=== PATIENT | female | born 1980 | race Caucasian/White ===

== ENCOUNTER 2018-06-11 02:27 | Emergency (ER) | payer MEDICAID ==
[~2018-06-11] VITALS: Ht 152.4 cm; Wt 73.0 kg
[2018-06-11] MEDS ORDERED: ACETAMINOPHEN 325MG TABLET PO ONE (08:30)
[2018-06-11 10:37] VITALS: BP 103/73
== END 2018-06-11 10:39 | disposition home or self-care (01) ==
LOC: ER 02:27
DX: S00.83XA Contusion of other part of head, initial encounter (principal); Z98.890 Other specified postprocedural states; W18.39XA Other fall on same level, initial encounter; Y93.89 Activity, other specified; Y92.89 Other specified places as the place of occurrence of the external cause; Y99.8 Other external cause status
CPT/HCPCS: 70486; 81025; 99284

== ENCOUNTER 2019-05-12 00:49 | Emergency (ER) | payer OTHER, MEDICAID ==
[~2019-05-12] VITALS: Ht 152.4 cm; Wt 73.0 kg
[2019-05-12 01:26] LABS: CLARITY URINE CLOUDY (CLEAR); COLOR URINE YELLOW (YELLOW); KETONES URINE NEGATIVE (NEGATIVE); LEUKOCYTE ESTERASE URINE NEGATIVE (NEGATIVE); NITRITE URINE NEGATIVE (NEGATIVE); OCCULT BLOOD URINE 3+ (NEGATIVE); PROTEIN URINE TRACE (NEGATIVE); SPECIFIC GRAVITY URINE 1.029 (1.005-1.030)
[2019-05-12] MEDS ORDERED: IBUPROFEN 600MG TABLET PO ONE (03:00)
[2019-05-12 03:18] VITALS: BP 121/81
== END 2019-05-12 03:36 | disposition home or self-care (01) ==
LOC: ER 01:11
DX: G44.209 Tension-type headache, unspecified, not intractable (principal); F07.81 Postconcussional syndrome; M79.601 Pain in right arm; S13.8XXA Sprain of joints and ligaments of other parts of neck, initial encounter; W20.8XXA Other cause of strike by thrown, projected or falling object, initial encounter; Y93.89 Activity, other specified; Y92.89 Other specified places as the place of occurrence of the external cause; Y99.8 Other external cause status
CPT/HCPCS: 81003; 81025; 99283

== ENCOUNTER 2020-06-07 22:03 | Emergency (ER) | payer MEDICAID, OTHER ==
[~2020-06-07] VITALS: Ht 152.4 cm; Wt 76.0 kg
[2020-06-08 02:02] VITALS: BP 130/80
== END 2020-06-08 02:03 | disposition home or self-care (01) ==
LOC: ER 22:03
DX: R07.0 Pain in throat (principal); R07.89 Other chest pain; Z98.890 Other specified postprocedural states
CPT/HCPCS: 70360; 70490; 71046; 99284

== ENCOUNTER 2020-12-09 10:52 | Emergency (ER) | payer MEDICAID ==
[~2020-12-09] VITALS: Ht 152.4 cm; Wt 68.0 kg
[2020-12-09] MEDS ORDERED: ADENOSINE 3 MG/ML 2ML VIAL IV ONE ×2 (11:15)
[2020-12-09 11:29] LABS: BASOPHILS % 0.5 % (0.0-2.0); EOSINOPHILS % 0.5 % (0.0-5.0); HEMATOCRIT. 34.2 % (36.0-48.0); HEMOGLOBIN. 11.4 g/dL (12.0-16.0); LYMPHOCYTES % 31.6 % (20.0-50.0); MEAN CORPUSCULAR HEMOGLOBIN 25.3 pg (28.0-32.0); MEAN CORPUSCULAR VOLUME 75.8 fL (81.0-99.0); MONOCYTES % 6.9 % (2.0-8.0); NEUTROPHILS % 60.5 % (40.0-76.0); PLATELET 381 x1000/uL (130-400); RED BLOOD CELL COUNT 4.51 mill/uL (4.2-5.4); RED CELL DISTRIBUTION WIDTH 16.9 % (11.6-14.6)
[2020-12-09 11:35] LABS: CHLORIDE 109 mEq/L (98-107)
[2020-12-09 13:00] VITALS: BP 101/75
== END 2020-12-09 13:32 | disposition home or self-care (01) ==
LOC: ER 10:52
DX: I47.1 Supraventricular tachycardia (principal); F41.9 Anxiety disorder, unspecified; Z98.890 Other specified postprocedural states
CPT/HCPCS: 36415; 71045; 80053; 83880; 84484; 85025; 93005; 96374; 99291; J0153; 99285

== ENCOUNTER 2021-11-07 19:31 | Emergency (ER) | payer MEDICAID | END 2021-11-07 20:37 | disposition left against medical advice (07) | LOC: ER 19:31 | DX: Z53.21 Procedure and treatment not carried out due to patient leaving prior to being seen by health care provider (principal) ==

== ENCOUNTER 2023-01-08 23:59 | Emergency (ER) | payer MEDICAID, OTHER ==
[~2023-01-08] VITALS: Ht 152.4 cm; Wt 84.7 kg
[2023-01-09 00:01] VITALS: PULSE 96; RESP 18
[2023-01-09 00:07] VITALS: BP 113/58; TEMP 98.3; O2SAT 98
[2023-01-09 01:05] LABS: BASOPHILS % 0.4 % (0.0-2.0); EOSINOPHILS % 1.3 % (0.0-5.0); HEMATOCRIT. 33.1 % (36.0-48.0); HEMOGLOBIN. 11.6 g/dL (12.0-16.0); LYMPHOCYTES % 20.5 % (20.0-50.0); MEAN CORPUSCULAR HEMOGLOBIN 30.2 pg (28.0-32.0); MEAN CORPUSCULAR VOLUME 86.3 fL (81.0-99.0); MEAN PLATELET VOLUME 7.3 fl (7.4-10.4); MONOCYTES % 10.8 % (2.0-8.0); PLATELET 308 x1000/uL (130-400); RED BLOOD CELL COUNT 3.83 mill/uL (4.2-5.4); RED CELL DISTRIBUTION WIDTH 16.8 % (11.6-14.6); WHITE BLOOD COUNT 10.1 x1000/uL (4.5-11.0)
[2023-01-09 01:17] LABS: CHLORIDE 108 mEq/L (98-107); INDEX HEMOLYSI 1 (1-3); INDEX ICTERIC 1 (1-4); INDEX LIPEMIC 1 (1-3); POTASSIUM 3.7 mEq/L (3.5-5.1); SODIUM 136 mEq/L (136-145)
[2023-01-09 01:27] LABS: ALANINE AMINOTRANSFERASE 30 IU/L (13-61); ASPARTATE AMINOTRANSFERASE 17 IU/L (15-37); BILIRUBIN TOTAL 0.2 mg/dL (0.1-1.0); CARBON DIOXIDE 20 mEq/L (21-32); CREATININE 0.4 mg/dL (0.6-1.3); GLUCOSE 109 mg/dL (70-105); PROTEIN TOTAL 6.8 g/dL (6.0-8.3); TROPONIN I HIGH SENSITIVITY 4 ng/L (<54); UREA NITROGEN BLOOD 12 mg/dL (7-21)
== END 2023-01-09 02:50 | disposition home or self-care (01) ==
LOC: ER 23:59
DX: R07.89 Other chest pain (principal); R09.81 Nasal congestion; F41.9 Anxiety disorder, unspecified; Z98.890 Other specified postprocedural states
CPT/HCPCS: 36415; 80053; 84484; 85025; 93005; 99284

== ENCOUNTER 2023-03-21 21:48 | Emergency (ER) | payer MEDICAID, OTHER ==
[~2023-03-21] VITALS: Ht 152.4 cm; Wt 95.0 kg
[2023-03-21 22:48] VITALS: TEMP 97.9; O2SAT 98
[2023-03-22] MEDS ORDERED: NEOM10DR11 LEFT EAR (00:31)
[2023-03-22 00:39] VITALS: BP 139/90; PULSE 83; RESP 16
== END 2023-03-22 01:00 | disposition home or self-care (01) ==
LOC: ER 21:48
DX: H60.92 Unspecified otitis externa, left ear (principal)
CPT/HCPCS: 99282; 99283

== ENCOUNTER 2023-10-31 16:26 | Emergency (ER) | payer MEDICAID, OTHER ==
[~2023-10-31] VITALS: Ht 152.4 cm; Wt 81.6 kg
[~2023-10-31 16:26] MED LIST: NEOM10DR11 LEFT EAR
[2023-10-31 16:47] VITALS: O2SAT 98
[2023-10-31] MEDS: LIDOCAINE 5% PATCH TOP SCH (18:46)
[2023-10-31 18:48] LABS: CLARITY URINE CLOUDY (CLEAR); COLOR URINE YELLOW (YELLOW); GLUCOSE URINE NEGATIVE (NEGATIVE); KETONES URINE TRACE (NEGATIVE); LEUKOCYTE ESTERASE URINE NEGATIVE (NEGATIVE); NITRITE URINE NEGATIVE (NEGATIVE); OCCULT BLOOD URINE NEGATIVE (NEGATIVE); PH URINE 5.5 (4.5-8.0); PROTEIN URINE 1+ (NEGATIVE); SPECIFIC GRAVITY URINE 1.035 (1.005-1.030)
[2023-10-31] MEDS ORDERED: CYCL10TA21 MT (18:53)
[2023-10-31] MEDS ORDERED: NAPR220C61 MT (18:53)
[2023-10-31] MEDS ORDERED: LIDO700A15 TP (18:53)
[2023-10-31 18:59] LABS: BACTERIA URINE 1+; SQUAMOUS EPITHELIAL CELL URINE 2+ /lpf (RARE/1+)
[2023-10-31 19:00] VITALS: BP 133/81; PULSE 80; RESP 16; TEMP 98.3
== END 2023-10-31 19:28 | disposition home or self-care (01) ==
LOC: ER 16:26
DX: M54.50 Low back pain, unspecified (principal); Z98.890 Other specified postprocedural states
CPT/HCPCS: 81003; 81025; 99283

== ENCOUNTER 2023-11-22 20:55 | Emergency (ER) | payer MEDICAID, OTHER ==
[~2023-11-22] VITALS: Ht 152.4 cm; Wt 77.0 kg
[~2023-11-22 20:55] MED LIST changes: +CYCL10TA21 MT; +LIDO700A15 TP; +NAPR220C61 MT
[2023-11-22 21:01] VITALS: O2SAT 98
[2023-11-22 23:11] LABS: CLARITY URINE CLOUDY (CLEAR); COLOR URINE YELLOW (YELLOW); GLUCOSE URINE NEGATIVE (NEGATIVE); KETONES URINE NEGATIVE (NEGATIVE); LEUKOCYTE ESTERASE URINE 2+ (NEGATIVE); NITRITE URINE NEGATIVE (NEGATIVE); OCCULT BLOOD URINE 2+ (NEGATIVE); PH URINE 6.5 (4.5-8.0); PROTEIN URINE 1+ (NEGATIVE)
[2023-11-22 23:33] LABS: BACTERIA URINE 1+; SQUAMOUS EPITHELIAL CELL URINE 3+ /lpf (RARE/1+); WBC URINE TNTC /hpf (0-2)
[2023-11-22] MEDS ORDERED: NITR100C MT (23:55)
[2023-11-22] MEDS ORDERED: PHEN-910 MT (23:55)
[2023-11-23 01:55] VITALS: BP 129/89; PULSE 90; RESP 19; TEMP 98
== END 2023-11-23 01:57 | disposition home or self-care (01) ==
LOC: ER 20:55
DX: N39.0 Urinary tract infection, site not specified (principal); R30.0 Dysuria; Z98.890 Other specified postprocedural states; Z79.899 Other long term (current) drug therapy
CPT/HCPCS: 81003; 87077; 87186; 99283

== ENCOUNTER 2023-12-12 20:51 | Emergency (ER) | payer OTHER ==
[~2023-12-12] VITALS: Ht 152.4 cm; Wt 86.0 kg
[~2023-12-12 20:51] MED LIST changes: +NITR100C MT; +PHEN-910 MT
[2023-12-12 21:26] VITALS: O2SAT 98
[2023-12-13] MEDS ORDERED: LIDOCAINE 5% PATCH TOP SCH (00:30)
[2023-12-13] MEDS ORDERED: NAPR220C61 MT (02:15)
[2023-12-13] MEDS ORDERED: LIDO700A15 TP (02:15)
[2023-12-13] MEDS ORDERED: CYCL10TA21 MT (02:15)
[2023-12-13] MEDS: KETOROLAC 30MG/ML VIAL IM ONE (02:32)
[2023-12-13] MEDS: KETOROLAC 30MG/ML VIAL IM NR (02:32)
[2023-12-13] MEDS: ACETAMINOPHEN 325MG TABLET PO ONE (02:32)
[2023-12-13] MEDS: LIDOCAINE 5% PATCH TOP SCH (02:33)
[2023-12-13] MEDS: ACETAMINOPHEN 325MG TABLET PO NR (02:33)
[2023-12-13 02:34] VITALS: BP 131/70; PULSE 83; RESP 18; TEMP 36.78072; O2SAT 98
== END 2023-12-13 02:36 | disposition home or self-care (01) ==
LOC: ER 20:51
DX: M54.12 Radiculopathy, cervical region (principal); Z98.890 Other specified postprocedural states
CPT/HCPCS: 96372; 99283; J1885

== ENCOUNTER 2023-12-27 22:43 | Emergency (ER) | payer OTHER ==
[~2023-12-27] VITALS: Ht 152.4 cm; Wt 77.0 kg
[2023-12-27 23:04] VITALS: O2SAT 98
[2023-12-28] MEDS: LORAZEPAM 0.5MG TABLET PO ONE (00:33)
[2023-12-28 00:58] VITALS: BP 114/69; PULSE 74; RESP 14; TEMP 36.66960; O2SAT 100
== END 2023-12-28 01:00 | disposition home or self-care (01) ==
LOC: ER 22:43
DX: F41.9 Anxiety disorder, unspecified (principal); E11.9 Type 2 diabetes mellitus without complications; I10 Essential (primary) hypertension; Z98.890 Other specified postprocedural states; Z79.899 Other long term (current) drug therapy
CPT/HCPCS: 71045; 93005; 99283

== ENCOUNTER 2024-04-17 22:25 | Emergency (ER) | payer MEDICAID, OTHER ==
[~2024-04-17] VITALS: Ht 152.4 cm; Wt 72.0 kg
[2024-04-17 23:38] VITALS: O2SAT 98
[2024-04-18] MEDS ORDERED: NAPR-1074 MT (01:12)
[2024-04-18 02:08] VITALS: BP 128/87; PULSE 83; RESP 16; TEMP 36.66960; O2SAT 98
[2024-04-18] MEDS: ACETAMINOPHEN 500MG TABLET PO ONE (02:11)
[2024-04-18] MEDS: KETOROLAC 30MG/ML VIAL IM ONE (02:11)
== END 2024-04-18 02:09 | disposition home or self-care (01) ==
LOC: ER 22:25
DX: M54.41 Lumbago with sciatica, right side (principal); Z98.890 Other specified postprocedural states
CPT/HCPCS: 99283; 96372; J1885

== ENCOUNTER 2024-04-27 22:24 | Emergency (ER) | payer OTHER ==
[~2024-04-27] VITALS: Ht 152.4 cm; Wt 81.9 kg
[~2024-04-27 22:24] MED LIST changes: +NAPR-1074 MT
[2024-04-27 23:03] VITALS: BP 120/66; PULSE 74; RESP 16; TEMP 98.1; O2SAT 99
[2024-04-27] MEDS ORDERED: AMOX1TAB16 MT (23:11)
[2024-04-27] MEDS ORDERED: CETI1TAB MT (23:11)
== END 2024-04-28 01:47 | disposition home or self-care (01) ==
LOC: ER 22:24
DX: H66.92 Otitis media, unspecified, left ear (principal); E11.9 Type 2 diabetes mellitus without complications; I10 Essential (primary) hypertension; Z98.890 Other specified postprocedural states
CPT/HCPCS: 99283

== ENCOUNTER 2024-05-25 21:37 | Emergency (ER) | payer OTHER ==
[~2024-05-25] VITALS: Ht 152.4 cm; Wt 75.0 kg
[~2024-05-25 21:37] MED LIST changes: +AMOX1TAB16 MT; +CETI1TAB MT
[2024-05-25 21:47] VITALS: O2SAT 100
[2024-05-25 22:13] VITALS: BP 123/79; TEMP 98.6
[2024-05-26] MEDS: ALBUTEROL (0.083%) 2.5MG/3ML NEB ONE (00:36)
[2024-05-26 00:37] VITALS: PULSE 84; RESP 16; O2SAT 98
[2024-05-26] MEDS: ALBUTEROL (0.083%) 2.5MG/3ML NEB HHN ONE (00:37)
== END 2024-05-26 02:14 | disposition home or self-care (01) ==
LOC: ER 21:37
DX: R06.02 Shortness of breath (principal); R05.9 Cough, unspecified; E11.9 Type 2 diabetes mellitus without complications; I10 Essential (primary) hypertension; Z98.890 Other specified postprocedural states; Z79.899 Other long term (current) drug therapy
CPT/HCPCS: 71045; 99283; 94640; Z7610 ×3

== ENCOUNTER 2024-06-11 23:57 | Emergency (ER) | payer OTHER ==
[~2024-06-11] VITALS: Ht 162.6 cm; Wt 80.0 kg
[2024-06-12 00:07] VITALS: TEMP 36.8; O2SAT 97
[2024-06-12 01:53] LABS: HCG SCREEN NEGATIVE
[2024-06-12] MEDS: ACETAMINOPHEN 325MG TABLET PO ONE (02:41)
[2024-06-12] MEDS ORDERED: NAPR-1176 MT (02:41)
[2024-06-12] MEDS ORDERED: LIDO700A15 TP (02:41)
[2024-06-12 03:42] VITALS: BP 120/78; PULSE 81; RESP 19; O2SAT 100
== END 2024-06-12 03:44 | disposition home or self-care (01) ==
LOC: ER 23:57
DX: M25.511 Pain in right shoulder (principal); Z79.1 Long term (current) use of non-steroidal anti-inflammatories (NSAID); Z98.890 Other specified postprocedural states
CPT/HCPCS: 73030; 84703; 99283; 99284; A4565

== ENCOUNTER 2024-07-07 16:27 | Emergency (ER) | payer OTHER ==
[~2024-07-07] VITALS: Ht 152.4 cm; Wt 79.4 kg
[~2024-07-07 16:27] MED LIST changes: +NAPR-1176 MT
[2024-07-07 16:30] VITALS: O2SAT 100
[2024-07-07] MEDS ORDERED: CAPS42.514 TP (18:52)
[2024-07-07 19:20] VITALS: BP 113/75; PULSE 89; RESP 18; TEMP 36.8; O2SAT 100
== END 2024-07-07 19:21 | disposition home or self-care (01) ==
LOC: ER 16:33
DX: M79.622 Pain in left upper arm (principal); Z79.899 Other long term (current) drug therapy; Z79.1 Long term (current) use of non-steroidal anti-inflammatories (NSAID); Z98.890 Other specified postprocedural states
CPT/HCPCS: 99282

== ENCOUNTER 2024-07-27 19:54 | Emergency (ER) | payer MEDICAID, OTHER ==
[~2024-07-27] VITALS: Ht 149.9 cm; Wt 78.0 kg
[~2024-07-27 19:54] MED LIST changes: +CAPS42.514 TP
[2024-07-27 19:55] VITALS: O2SAT 100
[2024-07-27 20:14] VITALS: BP 121/78; PULSE 77; RESP 18; TEMP 37.1; O2SAT 98
[2024-07-27] MEDS ORDERED: AMOX1TAB16 MT (21:09)
[2024-07-27] MEDS ORDERED: AZIT500T8 MT (21:09)
== END 2024-07-27 21:20 | disposition home or self-care (01) ==
LOC: ER 19:54
DX: J18.9 Pneumonia, unspecified organism (principal); Z79.1 Long term (current) use of non-steroidal anti-inflammatories (NSAID); Z79.899 Other long term (current) drug therapy; Z98.890 Other specified postprocedural states
CPT/HCPCS: 71045; 99283

== ENCOUNTER 2024-10-01 23:54 | Emergency (ER) | payer MEDICAID ==
[~2024-10-01] VITALS: Ht 152.4 cm; Wt 77.1 kg
[~2024-10-01 23:54] MED LIST changes: +AZIT500T8 MT; +LIDO-53 TP; -LIDO700A15 TP
[2024-10-02 00:26] VITALS: O2SAT 99
[2024-10-02] MEDS: KETOROLAC 15MG/ML VIAL IM ONE (01:38)
[2024-10-02 03:24] VITALS: BP 122/80; PULSE 70; RESP 20; TEMP 36.5; O2SAT 99
== END 2024-10-02 03:30 | disposition home or self-care (01) ==
LOC: ER 23:54
DX: M25.562 Pain in left knee (principal); Z79.1 Long term (current) use of non-steroidal anti-inflammatories (NSAID); Z98.890 Other specified postprocedural states; Z79.899 Other long term (current) drug therapy
CPT/HCPCS: 99283; 81025; 73560; 96372; J1885; A6449; 99284

== ENCOUNTER 2024-11-17 21:30 | Emergency (ER) | payer MEDICAID ==
[~2024-11-17] VITALS: Ht 152.4 cm; Wt 78.4 kg
[2024-11-17 21:46] VITALS: TEMP 36.8; O2SAT 99
[2024-11-17 22:57] LABS: BASOPHILS % 0.5 % (0.0-2.0); EOSINOPHILS % 2.2 % (0.0-5.0); HEMATOCRIT. 36.0 % (36.0-48.0); HEMOGLOBIN. 12.2 g/dL (12.0-16.0); LYMPHOCYTES % 28.5 % (20.0-50.0); MEAN PLATELET VOLUME 8.2 fl (7.4-10.4); MONOCYTES % 9.4 % (2.0-8.0); NEUTROPHILS % 59.4 % (40.0-76.0); PLATELET 284 x1000/uL (130-400); RED BLOOD CELL COUNT 4.11 mill/uL (4.2-5.4); RED CELL DISTRIBUTION WIDTH 13.4 % (11.6-14.6)
[2024-11-17 23:13] LABS: CREATININE 0.7 mg/dL (0.6-1.0); UREA NITROGEN BLOOD 14 mg/dL (9-23)
[2024-11-17 23:15] LABS: ASPARTATE AMINOTRANSFERASE 33 IU/L (<34); BILIRUBIN DIRECT < 0.1 mg/dL (<=3.0)
[2024-11-17 23:16] LABS: BILIRUBIN TOTAL 0.3 mg/dL (0.1-1.0); PROTEIN TOTAL 7.7 g/dL (6.0-8.3)
[2024-11-17 23:28] LABS: HCG SCREEN NEGATIVE
[2024-11-17 23:30] LABS: CLARITY URINE CLEAR (CLEAR); COLOR URINE YELLOW (YELLOW); GLUCOSE URINE NEGATIVE (NEGATIVE); KETONES URINE NEGATIVE (NEGATIVE); LEUKOCYTE ESTERASE URINE NEGATIVE (NEGATIVE); NITRITE URINE NEGATIVE (NEGATIVE); OCCULT BLOOD URINE NEGATIVE (NEGATIVE); PH URINE 6.0 (4.5-8.0); PROTEIN URINE NEGATIVE (NEGATIVE); SPECIFIC GRAVITY URINE 1.019 (1.005-1.030); UROBILINOGEN URINE 0.2 E.U./dL (0.2-1.0)
[2024-11-17 23:40] LABS: TROPONIN I HIGH SENSITIVITY < 4 ng/L (3.0-34)
[2024-11-18] MEDS: MAGNESIUM/ALUMINUM HYDROXIDE/SIMETHICONE 30ML UDC PO ONE (00:54)
[2024-11-18] MEDS: FAMOTIDINE 20MG TABLET PO ONE (00:55)
[2024-11-18] MEDS ORDERED: FAMO-135 MT (01:32)
[2024-11-18 02:01] VITALS: BP 134/78; PULSE 71; RESP 18; O2SAT 100
== END 2024-11-18 02:03 | disposition home or self-care (01) ==
LOC: ER 21:30
DX: R07.89 Other chest pain (principal); R10.13 Epigastric pain; Z98.890 Other specified postprocedural states; Z79.899 Other long term (current) drug therapy; Z79.1 Long term (current) use of non-steroidal anti-inflammatories (NSAID)
CPT/HCPCS: 36415; 71045; 76705; 80048; 80076; 81003; 84484; 84703; 85025; 93005; 99285

== ENCOUNTER 2024-11-22 23:55 | Emergency (ER) | payer MEDICAID ==
[~2024-11-22] VITALS: Ht 152.4 cm; Wt 84.1 kg
[~2024-11-22 23:55] MED LIST changes: +FAMO-135 MT
[2024-11-23 00:05] VITALS: O2SAT 100
[2024-11-23 00:30] LABS: CLARITY URINE CLEAR (CLEAR); COLOR URINE YELLOW (YELLOW); GLUCOSE URINE NEGATIVE (NEGATIVE); KETONES URINE TRACE (NEGATIVE); LEUKOCYTE ESTERASE URINE TRACE (NEGATIVE); NITRITE URINE NEGATIVE (NEGATIVE); OCCULT BLOOD URINE NEGATIVE (NEGATIVE); PH URINE 5.5 (4.5-8.0); PROTEIN URINE NEGATIVE (NEGATIVE); SPECIFIC GRAVITY URINE 1.020 (1.005-1.030); UROBILINOGEN URINE 1.0 E.U./dL (0.2-1.0)
[2024-11-23 00:40] LABS: BASOPHILS % 0.4 % (0.0-2.0); EOSINOPHILS % 2.3 % (0.0-5.0); HEMATOCRIT. 34.3 % (36.0-48.0); HEMOGLOBIN. 11.6 g/dL (12.0-16.0); LYMPHOCYTES % 33.0 % (20.0-50.0); MEAN PLATELET VOLUME 8.3 fl (7.4-10.4); MONOCYTES % 9.2 % (2.0-8.0); NEUTROPHILS % 55.1 % (40.0-76.0); PLATELET 271 x1000/uL (130-400); RED BLOOD CELL COUNT 3.95 mill/uL (4.2-5.4); RED CELL DISTRIBUTION WIDTH 13.4 % (11.6-14.6)
[2024-11-23 00:48] LABS: RBC URINE NONE SEEN /hpf (0-2)
[2024-11-23 00:49] LABS: BACTERIA URINE TRACE; SQUAMOUS EPITHELIAL CELL URINE FEW /lpf (RARE/1+)
[2024-11-23 00:53] LABS: CREATININE 0.8 mg/dL (0.6-1.0); HCG SCREEN NEGATIVE; UREA NITROGEN BLOOD 15 mg/dL (9-23)
[2024-11-23] MEDS: ONDANSETRON 4MG ODT PO ONE (01:37)
[2024-11-23 01:44] LABS: ASPARTATE AMINOTRANSFERASE 25 IU/L (<34); BILIRUBIN DIRECT < 0.1 mg/dL (<=3.0); BILIRUBIN TOTAL 0.3 mg/dL (0.1-1.0); PROTEIN TOTAL 6.6 g/dL (6.0-8.3)
[2024-11-23 03:38] VITALS: BP 109/59; PULSE 77; RESP 18; TEMP 36.8; O2SAT 98
[2024-11-23] MEDS ORDERED: ONDA4TAB50 MT (03:49)
[2024-11-23] MEDS ORDERED: IBUP-2028 MT (03:49)
== END 2024-11-23 03:57 | disposition home or self-care (01) ==
LOC: ER 23:55
DX: R10.9 Unspecified abdominal pain (principal); R11.0 Nausea; Z79.1 Long term (current) use of non-steroidal anti-inflammatories (NSAID); Z86.19 Personal history of other infectious and parasitic diseases
CPT/HCPCS: 99284; 81025; 74176; 80076; 80048; 81003; 84703; 83690; 85025; 36415; Q0162

== ENCOUNTER 2025-01-11 00:01 | Emergency (ER) | payer MEDICAID ==
[~2025-01-11] VITALS: Ht 152.4 cm; Wt 84.0 kg
[~2025-01-11 00:01] MED LIST changes: +IBUP-2028 MT; +ONDA4TAB50 MT
[2025-01-11] MEDS: IBUPROFEN 600MG TABLET PO ONE (00:34)
[2025-01-11] MEDS: ALBUTEROL (0.083%) 2.5MG/3ML NEB HHN ONE (00:40)
[2025-01-11 00:41] VITALS: PULSE 89; RESP 20; O2SAT 98
[2025-01-11 00:54] VITALS: PULSE 87; RESP 20; O2SAT 98
[2025-01-11] MEDS ORDERED: ALBU18HF2 IH (00:58)
[2025-01-11] MEDS ORDERED: IBUP-1455 MT (00:58)
[2025-01-11 01:12] VITALS: BP 122/76; PULSE 79; RESP 14; TEMP 36.5; O2SAT 100
[2025-01-11 03:21] LABS: INFLUENZA TYPE A Presumptive Negative (Pres. Neg.)
[2025-01-11 03:22] LABS: INFLUENZA TYPE B Presumptive Negative (Pres. Neg.)
== END 2025-01-11 01:12 | disposition home or self-care (01) ==
LOC: ER 00:01
DX: B34.9 Viral infection, unspecified (principal); Z79.1 Long term (current) use of non-steroidal anti-inflammatories (NSAID); Z20.822 Contact with and (suspected) exposure to COVID-19; Z79.899 Other long term (current) drug therapy; Z98.890 Other specified postprocedural states
CPT/HCPCS: 87804 ×2; 71045; 94640; 99284; 87426; Z7610; 94070; 94664

== ENCOUNTER 2025-04-02 07:38 | Emergency (ER) | payer MEDICAID ==
[~2025-04-02] VITALS: Ht 160 cm; Wt 85.0 kg
[~2025-04-02 07:38] MED LIST changes: +ALBU18HF2 IH; +IBUP-1455 MT
[2025-04-02 07:41] VITALS: O2SAT 100
[2025-04-02 07:49] VITALS: BP 122/71; PULSE 82; RESP 18; TEMP 36.8; O2SAT 98
== END 2025-04-02 13:00 | disposition left against medical advice (07) ==
LOC: ER 07:38
DX: T17.208A Unspecified foreign body in pharynx causing other injury, initial encounter (principal); Z53.21 Procedure and treatment not carried out due to patient leaving prior to being seen by health care provider; X58.XXXA Exposure to other specified factors, initial encounter; Y93.89 Activity, other specified; Y92.89 Other specified places as the place of occurrence of the external cause; Y99.8 Other external cause status
CPT/HCPCS: 99281